=== PATIENT | male | born 1980 | race Caucasian/White ===

== ENCOUNTER 2022-05-01 10:39 | Emergency (ER) | payer BC, SELFPAY ==
--- NOTE | ~2022-05-01 | XR_ITS ---
EXAMINATION: XR shoulder LT min 2V DATE: 05/01/2022 11:05 INDICATION: Left shoulder pain. Injury. TECHNIQUE: 4 views of left shoulder were obtained. COMPARISON: None. FINDINGS: Bone alignment is normal. There is a nondisplaced fracture of greater tuberosity of proxima l humerus. Joint spaces are normal. An electronic implant overlies left chest wall. IMPRESSION: 1. Nondisplaced fracture of greater tuberosity of proximal humerus. Reviewed, dictated and finalized at location A. ON PICTURE NARRATOR
[2022-05-01 10:39] VITALS: BP 140/77; PULSE 79; RESP 20; TEMP 36.9; O2SAT 98
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
[2022-05-01] MEDS: HYDROcodone/acetaminophen (*CRX) 5-325 MG TABLET 1 TAB PO (11:48)
== END 2022-05-01 12:20 | disposition home or self-care (01) ==
PROVIDERS: Emergency Provider Physician Assistant
DX: S42.255A Nondisplaced fracture of greater tuberosity of left humerus, initial encounter for closed fracture (principal); Y04.0XXA Assault by unarmed brawl or fight, initial encounter
CPT/HCPCS: 73030; 99284; A9270